=== PATIENT | female | born 1990 | race Caucasian/White ===

== ENCOUNTER 2021-06-16 23:15 | Emergency (ER) | payer BC, SELFPAY ==
--- NOTE | ~2021-06-16 | CT_ITS ---
EXAMINATION: CTA brain carotid EXAM DATE: 06/17/2021 06:01 INDICATION: Headache. TECHNIQUE: Noncontrast head CT. Spiral CTA of the carotid arteries was performed with intravenous i njection 100 cc of Omnipaque 350. Axial, coronal, sagittal reformatted images reviewed. Additional r eformatted images created on dedicated 3-D workstation. NASCET comparable standard used to assess th e degree of arterial stenosis. Spiral CT angiogram cerebral arteries performed with the same intrave nous injection of contrast. Source images of the brain CTA transferred to dedicated workstation for 3 -D rotational image creation. Coronal, sagittal maximum intensity pixel images also reviewed. The d ose-length product (DLP) for this examination was 1685.52 mGy-cm. The exposure was tailored accordi ng to patient size, and iterative reconstruction (ASIR) was used as additional dose reduction techniq ue. There is no prior study for comparison. FINDINGS: There are scattered regions of nonspecific narrowing of cerebral arteries, could indicate n onspecific vasculitis rather than atherosclerosis given patient's young age. Numerous possible underl evelia etiologies for vasculitis including primary angiitis, lupus or other systemic immunological diso rder, drug induced. There is no carotid bulb or siphon stenosis or arterial sclerosis. There is no carotid or vertebral basilar arterial dissection or fibromuscular dysplasia. There are no cerebral artery aneurysms. There is symmetric cerebral artery arborization. The sagittal, transverse and sigmoid sinuses enhance norm ally, no venous sinus thrombosis. Internal cerebral veins also enhance normally. There is no acute intraparenchymal hemorrhage. No evidence of intraparenchymal brain mass lesion. N o evidence of acute infarction. There is no mass effect or midline shift. There is no obstructive hy drocephalus suspected. There are no extra-axial collections. Incidental Findings: There is 1 cm right thyroid lobe nodule. IMPRESSION: 1. Scattered regions of cerebral artery narrowing which could indicate a nonspecific vasculitis. 2. Right there are lobe nodule; consider ultrasound for risk stratification. 3. Bilateral carotid bulb 0% stenosis. I discussed these findings with emergency room at 06/17/2021 08:57 CDT. Reviewed, dictated and finalized at location A. IMPRESSION: 1. Scattered regions of cerebral artery narrowing which could indicate a nonsp ecific vasculitis. 2. Right there are lobe nodule; consider ultrasound for risk stratification. 3. Bilateral carotid bulb 0% stenosis. I discussed these findings with emergency room at 06/17/2021 08:57 CDT.
[2021-06-16 23:18] VITALS: BP 171/95; PULSE 102; RESP 20; TEMP 36.6; O2SAT 98
[2021-06-17 03:13] VITALS: BP 139/100; PULSE 97; RESP 16; O2SAT 100
[2021-06-17] MEDS: METOCLOPRAMIDE HCL INJ 10 MG/2 ML VIAL IV PUSH (03:24)
[2021-06-17] MEDS: diphenhydrAMINE HCl INJ 50 MG/ML VIAL 25 MG IV PUSH (03:25)
[2021-06-17 04:03] VITALS: BP 135/86; PULSE 82; RESP 16; O2SAT 99
--- NOTE | 2021-06-17 04:50 | ED.HA ---
HPI - Headache General Chief Complaint: Headache Stated Complaint: Migraines Time Seen by Provider: 06/17/21 01:55 History of Present Illness HPI Narrative: Patient is a 30-year-old female who presents ER with headache. She has history of migraines. She reports 2 days ago she was driving when she feels like she felt a pop in the back of her head. She is then developed some nausea. No loss of consciousness point of view fevers chills or sweats. She has been taking Tylenol without relief. She did however take some Excedrin prior to arrival tonight which alleviated her headache completely before it returned. She has no numbness or tingling reports she is intermittently dizzy. She is concerned she may have intracranial hemorrhage. Patient reports pain is posterior and radiates to the sides. Throbbing in nature. Related Data Home Medications Medication Instructions Recorded Confirmed buspirone mg 06/16/21 norgestrel-ethinyl estradiol tablet 06/16/21 [Low-Ogestrel (28)] pantoprazole PO 06/16/21 venlafaxine mg PO 06/16/21 venlafaxine mg PO 06/16/21 Allergies Allergy/AdvReac Type Severity Reaction Status Date / Time ibuprofen Allergy Swelling Verified 06/17/21 03:18 Review of Systems Review of Systems: All systems reviewed & are unremarkable except as noted in HPI and below Constitutional: Constitutional: Denies chills, Denies fever(s) and Denies weakness Eyes: Eyes: Denies change in vision and Denies photophobia ENT: Denies nasal congestion and Denies sore throat Gastrointestinal: Gastrointestinal: Reports nausea and Denies vomiting Neurologic: Reports dizziness, Denies syncope, Reports headache(s), Denies focal weakness and Denies numbness PMFSH Past Medical History Medical History (Updated 06/17/21 @ 06:51 by Yimi Barber MD) Migraine headache Surgical History Surgical History (Updated 06/17/21 @ 04:55 by Yimi Barber MD) No pertinent past surgical history Social History Social History (Updated 06/17/21 @ 04:56 by Yimi Barber MD) Smoking status: Never smoker Exam Narrative: GENERAL: Well-appearing, well-nourished, and in no acute distress. HEAD: Normocephalic, atraumatic. EYES: PERRL and EOMI. ENT: Mucous membranes moist. CHEST: Clear to auscultation. No respiratory distress. HEART: Regular rate and rhythm. Normal peripheral pulses. EXTREMITIES: Normal range of motion. No edema. SKIN: Warm, dry, no rash. NEURO: No focal deficits. Alert and oriented x3. PSYCH: Normal mood and affect. Course Course Emergency Course: Patient informed of results. Discharge home. Headache resolved with Tylenol/Reglan/Benadryl. Vital Signs Vital signs: Vital Signs Temperature 97.8 F 06/16/21 23:18 Pulse Rate 102 H 06/16/21 23:18 Respiratory Rate 20 06/16/21 23:18 Blood Pressure 171/95 H 06/16/21 23:18 Pulse Oximetry 98 06/16/21 23:18 Temperature 97.8 F 06/16/21 23:18 Pulse Rate 83 06/17/21 06:25 Respiratory Rate 18 06/17/21 06:25 Blood Pressure 120/68 06/17/21 06:25 Pulse Oximetry 99 06/17/21 06:25 MDM - Headache Lab Data Result diagrams: 06/17/21 05:06 Labs: Lab Results 06/17/21 Range/Units 05:06 Creatinine 0.60 L (0.7-1.0) mg/dL Estim Creat Clear Calc 132 ml/min Estimated GFR > 60 (59 - ) UCG Bedside Result Negative Reference Range: Negative Imaging Data Radiologist's impression: CTA head: There is no hemodynamically significant stenosis within the intracranial vessels. CTA neck there is no hemodynamically significant stenosis within the neck vessels. There is a dominant left vertebral artery. Incidental finding of pleural thickening at the lung apices which may reflect atelectasis/fibrotic changes. 1 cm hypodensity in the right lobe of the thyroid gland recommend ultrasound. Periodontal disease. Degenerative changes to the c
[2021-06-17 05:05] VITALS: BP 109/64; PULSE 77; RESP 16; O2SAT 100
[2021-06-17 05:24] LABS: Estimated CRCL calculation 132 ml/min; Estimated Glomerular Filt Rate > 60
[2021-06-17 06:25] VITALS: BP 120/68; PULSE 83; RESP 18; O2SAT 99
[2021-06-17 07:19] VITALS: BP 129/70; PULSE 80; RESP 12; O2SAT 99
[2021-06-17 14:27] LABS: Alanine Aminotransferase 35 U/L (4-35); Albumin Level 4.6 g/dL (3.5-5.1); Alkaline Phosphatase 142 U/L (38-126); Anion Gap 12 mmol/L (8-16); Aspartate Amino Transferase 32 U/L (14-36); Bilirubin,Total 0.4 mg/dL (0.2-1.3); Blood Urea Nitrogen 11 mg/dL (7-17); Calcium 9.2 mg/dL (8.4-10.2); Carbon Dioxide 23 mmol/L (22-30); Chloride 105 mmol/L (98-107); Estimated CRCL calculation 115 ml/min; Estimated Glomerular Filt Rate > 60; Glucose 148 mg/dL (65-110); Potassium 3.8 mmol/L (3.4-5.0); Sodium 140 mmol/L (137-145)
== END 2021-06-17 07:19 | disposition home or self-care (01) ==
PROVIDERS: Emergency Medicine; Emergency Provider Emergency Medicine; PCP Family Medicine
DX: R51.9 Headache, unspecified (principal); E04.1 Nontoxic single thyroid nodule; R94.02 Abnormal brain scan; Z86.69 Personal history of other diseases of the nervous system and sense organs
CPT/HCPCS: 36415; 70496; 70498; 80053; 81025; 82565; 96365; 96375; 99284; J0131; J1200; J2765; Q9967

== ENCOUNTER 2021-06-17 12:12 | Observation (INO) | payer BC, SELFPAY ==
--- NOTE | ~2021-06-17 | XR_ITS ---
XR chest 2V DATE: 06/18/2021 13:10 INDICATION: Vasculitis TECHNIQUE: PA and lateral views COMPARISON: None FINDINGS: Normal heart size. No hilar or mediastinal enlargement. No pulmonary infiltrate or consolid ation, pleural effusion or pulmonary vascular congestion or pneumothorax. IMPRESSION: No active cardiopulmonary disease Reviewed, dictated and finalized at location B.
--- NOTE | ~2021-06-17 | US_ITS ---
EXAMINATION: US thyroid DATE: 06/18/2021 09:02 INDICATION: Thyroid nodule on CT TECHNIQUE: Multiple ultrasound images of the thyroid were obtained. COMPARISON: CT dated 06/17/2021 FINDINGS: The right thyroid lobe measures 3.8 x 1.6 x 1.5 cm. The left thyroid lobe measures 3.0 x 1.3 x 1.1 c m. 1.6 cm solid very hypoechoic mass with smooth margins and without echogenic foci in the mid right thyroid (TI-RADS 4, moderately suspicious , FNA if >=1.5 cm, annual followup is >=1 cm). No other no dules identified. There is normal echotexture, echogenicity and vascular flow throughout the thyroid gland. IMPRESSION: 1. 1.6 cm TI-RADS 4 right thyroid nodule for which ultrasound-guided biopsy would be recommended. Reviewed, dictated and finalized at location A. IMPRESSION: 1. 1.6 cm TI-RADS 4 right thyroid nodule for which ultrasound-guided biopsy wou ld be recommended.
--- NOTE | ~2021-06-17 | MR_ITS ---
EXAMINATION: MR brain/brain stem wo/w con EXAM DATE: 06/18/2021 08:49 INDICATION: Headache. Severe migraine on Thursday and Thursday with nausea and light sensitivity. Abnor mal CTA brain exam. TECHNIQUE: Magnetic resonance imaging (MRI) of the brain/brain stem obtained without contrast. Sagit azar T1, axial diffusion, gradient echo (T2*), T1, T2, FLAIR sequences obtained. Patient was then inj ected with 20 cc intravenous Multihance contrast. Axial and coronal postcontrast T1 weighted sequence s obtained. Correlation is made to CTA brain examination from yesterday. FINDINGS: There are no areas of restricted diffusion to suggest acute infarction. There is no acute hemorrhage seen on the T2*, a hemosiderin sensitive sequence. No intraparenchymal brain mass. The ve ntricles are normal in size. There are no extra-axial collections. Flow voids are seen in the cereb ral arteries on the T2-weighted sequences consistent with their expected patency. The orbits are unr emarkable. Soft tissue is unremarkable. There are no areas of abnormal enhancement on the postcont rast images. IMPRESSION: 1. Normal brain MRI examination. Reviewed, dictated and finalized at location A.
[2021-06-17 12:50] LABS: Basophils Absolute Auto 0.1 K/mm3 (0.0-0.1); Basophils Percent Auto 0.6 % (0.2-1.2); Eosinophils Absolute Auto 0.1 K/mm3 (0-0.3); Eosinophils Percent Auto 1.2 % (0-4.4); Hematocrit 44.3 % (37.0-47.0); Hemoglobin 14.1 g/dL (12.0-15.0); Immature Granulocyte Absolute 0.03 K/mm3 (0.00-0.031); Immature Granulocyte Percent A 0.3 % (0-0.5); Lymphocytes Absolute Auto 3.29 K/mm3 (0.9-3.2); Mean Corpuscular HGB Conc 31.8 g/dl (32-36); Mean Corpuscular Hemoglobin 26.3 pg (26-34); Mean Corpuscular Volume 82.5 fl (80-100); Mean Platelet Volume 9.1 fl (7.4-10.4); Monocytes Absolute Auto 0.6 K/mm3 (0.1-0.6); Neutrophils Absolute Auto 5.6 K/mm3 (1.3-6.7); Neutrophils Percent Auto 57.9 % (45.5-73.1); Platelet Count Result 268 k/mm3 (150-375); Red Blood Count 5.37 M/mm3 (4.2-5.4); Red Cell Distribution Width 14.1 % (11.5-14.5); White Blood Count 9.7 K/mm3 (4.5-10.0)
[2021-06-17 12:57] VITALS: BP 135/89; PULSE 114; RESP 18; TEMP 36.6; O2SAT 97
[2021-06-17 13:03] LABS: Alanine Aminotransferase 36 U/L (4-35); Albumin Level 4.5 g/dL (3.5-5.1); Alkaline Phosphatase 138 U/L (38-126); Anion Gap 11 mmol/L (8-16); Aspartate Amino Transferase 31 U/L (14-36); Bilirubin,Total 0.5 mg/dL (0.2-1.3); Blood Urea Nitrogen 11 mg/dL (7-17); Calcium 9.2 mg/dL (8.4-10.2); Carbon Dioxide 24 mmol/L (22-30); Chloride 105 mmol/L (98-107); Estimated CRCL calculation 132 ml/min; Estimated Glomerular Filt Rate > 60; Glucose 147 mg/dL (65-110); Potassium 3.9 mmol/L (3.4-5.0); Sodium 140 mmol/L (137-145)
[2021-06-17 13:05] LABS: CRP 1.8 mg/dL (<1.0)
[2021-06-17 13:20] VITALS: BP 137/94; PULSE 107; RESP 18; O2SAT 100
[2021-06-17 13:43] LABS: Erythrocyte Sedimentation Rate 9 mm/hr (0-20)
--- NOTE | 2021-06-17 15:04 | ED.GENADULT ---
HPI - General Adult General Chief complaint: Recheck/Abnormal Lab/Rx Stated complaint: CT Yesterday, Called to Admit today Time Seen by Provider: 06/17/21 14:47 Source: patient History of Present Illness HPI narrative: Patient is a 30 y/o female complaining of bilateral occipital headache starting 2 days ago. She describes her pain as aching and rates it as 3/10 currently. Her pain was worse earlier this morning. She had one episode of vomiting 2 days ago, but no vomiting today. She has no focal weakness or numbness. She was seen here earlier today and had a CTA, which was read as negative initially, but was thought to represent possible vasculitis per Dr. Mendoza. Neurology was consulted and patient was called back for admission and neurology evaluation. Related Data Home Medications Medication Instructions Recorded Confirmed buspirone mg 06/16/21 norgestrel-ethinyl estradiol tablet 06/16/21 [Low-Ogestrel (28)] pantoprazole PO 06/16/21 venlafaxine mg PO 06/16/21 venlafaxine mg PO 06/16/21 Allergies Allergy/AdvReac Type Severity Reaction Status Date / Time ibuprofen Allergy Swelling Verified 06/17/21 13:22 Review of Systems Constitutional: Constitutional: Denies chills, Denies fever(s), Reports headache(s) and Denies weakness Eyes: Eyes: Denies blurry vision ENT: Reports headache(s) and Denies neck pain Cardiovascular: Cardiovascular: Denies chest pain and Denies dyspnea Respiratory: Respiratory: Denies cough and Denies dyspnea Gastrointestinal: Gastrointestinal: Denies abdominal pain, Denies diarrhea, Reports nausea and Reports vomiting Genitourinary: Genitourinary: Denies hematuria and Denies dysuria Musculoskeletal: Musculoskeletal: Denies back pain and Denies neck pain Neurologic: Reports headache(s) and Denies weakness PMFSH Past Medical History Medical History Migraine headache Surgical History Surgical History No pertinent past surgical history Social History Social History Smoking status: Never smoker Exam Const: General: no acute distress and well developed Orientation/consciousness: oriented to person, oriented to place, oriented to time and patient oriented x3 HENMT: Head: normocephalic Ears: external ears normal General nose exam: Normal external nose present Eyes: General: appearance normal, both eyes and all related structures Conjunctivae: conjunctivae normal Neck: Neck: normal visual inspection and full ROM Chest: Chest palpation & inspection: normal inspection of the chest and no tenderness Resp: Effort & Inspection: normal respiratory effort Auscultation: clear to auscultation bilaterally Cardio: Rate: tachycardic Rhythm: regular rhythm GI: GI Palp: No abdominal tenderness and Yes Soft to palpation Skin: General skin exam: normal color and turgor normal Neuro: General: oriented to person, oriented to place, oriented to time and patient oriented x3 Cranial nerves: Yes CN's II-XII intact bilaterally Cognition (Neuro): normal cognition Speech: normal speech Motor exam (neuro): 5/5 motor strength present throughout Sensory Exam: normal sensation Coordination: [id number] test normal and [id number] test normal Extrem: General: normal to inspection, full ROM and no pedal edema Psych: Appearance: grossly normal Mental Status: mental status grossly normal Affect: normal affect Course Consultations Consultation #1: Discussed with ELSY Monet, who agrees to admit. Date: 06/17/21 Time: 15:00 Vital Signs Vital signs: Vital Signs Temperature 36.6 C 06/17/21 12:57 Pulse Rate 114 H 06/17/21 12:57 Respiratory Rate 18 06/17/21 12:57 Blood Pressure 135/89 06/17/21 12:57 Pulse Oximetry 97 06/17/21 12:57 Temperature 36.6 C 06/17/21 12:57 Pulse Rate 88 06/17/21 15:54 Respiratory
[2021-06-17 15:54] VITALS: BP 115/78; PULSE 88; RESP 16; O2SAT 100
--- NOTE | 2021-06-17 16:02 | PC.NURSE ---
This patient, Imani Sweeney, was admitted to [facility]. Patient/family oriented to hospital policies and general routines including ID bracelet, bed and alarms, visiting hours, pain management, procedures, bathroom and other care routines, personal items, smoking policy, room service/diet, and visiting hours. Information on how to activate the Rapid Response Team has been discussed. Patient/Family are encouraged to report perceived risks to care and to ask questions if they do not understand what they are told or what they should do.
[2021-06-17] MEDS: SODIUM CHLORIDE 0.9% IV 1,000 ML 999 ML IV CONT (16:18)
[2021-06-17 16:24] VITALS: BMI 40.5
[2021-06-17 16:33] VITALS: BP 169/79; PULSE 90; RESP 18; TEMP 36.6; O2SAT 97
[2021-06-17] MEDS: SODIUM CHLORIDE 0.9% IV 1,000 ML 100 ML IV CONT (17:56)
--- NOTE | 2021-06-17 18:35 | PM.IMHP ---
H&P: HPI History of Present Illness Date/Time: 06/17/21 18:35 this is a 30-year-old female patient who does have a history of having migraines. The patient came in earlier this morning to the emergency room with complaint of a headache. The patient stated that she has had a headache for 2 days and she has been taking Tylenol and the headache has not gone away. The patient stated she was driving 2 days ago and she felt a pop in the back of her neck. She developed some nausea but did not lose consciousness at that time she has not had any fever chills. She stated that Excedrin did help alleviate some of the headache but then it returned. She has not had any numbness or tingling. The patient CT scan was reported as nothing acute and the patient was returned to home. The amended read on the CT scan was as follows. Scattered regions of cerebral artery narrowing which could indicate a nonspecific vasculitis. 2. Right there are lobe nodule; consider ultrasound for risk stratification. 3. Bilateral carotid bulb 0% stenosis. The patient was called in asked to return to the emergency room. The patient was started on IV fluids. She is being admitted to observation status on the date of service of 06/17/2021 Chief Complaint: Migraine Review of Systems Review of Systems: All systems reviewed & are unremarkable except as noted in HPI and below Constitutional: Constitutional: Reports as per HPI and Reports no additional constitutional complaints Eyes: Eyes: Reports as per HPI and Reports no additional eye complaints ENT: Reports system reviewed and no additional complaints, except as documented and Reports Normal hearing present Cardiovascular: Cardiovascular: Reports no additional cardiovascular complaints Respiratory: Respiratory: Reports no additional respiratory complaints and Reports no additional respiratory complaints Gastrointestinal: Gastrointestinal: Reports as per HPI and Reports no additional gastrointestinal complaints Musculoskeletal: Musculoskeletal: Reports no additional musculoskeletal complaints Integumentary/Breasts: Skin/Breast: Reports system reviewed and no additional complaints, except as docu and Reports as per HPI Neurologic: Reports system reviewed and no additional complaints, except as documented, Reports as per HPI and Reports Normal hearing present Psychiatric: Psychiatric: Reports no additional psychiatric complaints and Reports as per HPI Endocrine: Endocrine: Reports no additional endocrine complaints Hematologic/Lymphatic: Hematologic/Lymphatic: Reports no additional hematologic/lymphatic complaints Allergic/Immunologic: Allergic/Immunologic: Reports no additional allergic/immunologic complaints [facility] Past Medical History Medical History (Updated 06/17/21 @ 18:58 by Tierney Mendoza NP) Anxiety Migraine headache Surgical History Surgical History (Updated 06/17/21 @ 18:45 by Tierney Mendoza NP) History of tooth extraction Hx of cholecystectomy S/P tonsillectomy and adenoidectomy Family History Family History Father Diabetes mellitus Anxiety Depression Mother Anxiety Depression Social History Social History (Updated 06/17/21 @ 18:47 by Tierney Mendoza NP) Social History: The patient lives with her father. She works at [employer]. She does occasionally smoke marijuana. Her father is a durable power state's attorney for healthcare. The patient is a full code. The patient has no children. She is single. Smoking status: Current every day smoker Smokeless tobacco user: other Second hand tobacco smoke exposure: No Alcohol intake: current Drinks per week: 1 Substance use: current Substance use type: marijuana Last use: 06/17/21 Spiritual care concerns: No Meds Home Medications and Allergies Home Medications Medication Instructions Recorded Confirmed Type buspirone 15 mg PO BID 06/16/21
[2021-06-17] MEDS: busPIRone HCL 5 MG TABLET 15 MG PO (18:48)
[2021-06-17] MEDS: METOCLOPRAMIDE HCL INJ 10 MG/2 ML VIAL IV PUSH (18:48)
[2021-06-17] MEDS: HYDROcodone/acetaminophen (*CRX) 5-325 MG TABLET 1 TAB PO (18:48)
[2021-06-17] MEDS: PANTOPRAZOLE 40 MG TABLET PO (18:48)
[2021-06-17 20:00] VITALS: O2SAT 96
[2021-06-17 21:47] VITALS: BP 128/83; PULSE 84; RESP 18; TEMP 36.2; O2SAT 96
[2021-06-17] MEDS: methylPREDNISolone SOD SUCC 125 MG VIAL 80 MG IV PUSH (23:56)
[2021-06-18] MEDS: SODIUM CHLORIDE 0.9% IV 1,000 ML 100 ML IV CONT (03:39)
[2021-06-18 06:00] VITALS: BP 146/94; PULSE 88; RESP 18; TEMP 37.1; O2SAT 95
[2021-06-18] MEDS: methylPREDNISolone SOD SUCC 125 MG VIAL 80 MG IV PUSH (06:07)
[2021-06-18 06:10] LABS: Basophils Percent Auto 0.2 % (0.2-1.2); Hematocrit 43.8 % (37.0-47.0); Hemoglobin 13.9 g/dL (12.0-15.0); Immature Granulocyte Absolute 0.04 K/mm3 (0.00-0.031); Immature Granulocyte Percent A 0.5 % (0-0.5); Lymphocytes Absolute Auto 1.18 K/mm3 (0.9-3.2); Lymphocytes Percent Auto 14.3 % (18.3-44.2); Mean Corpuscular HGB Conc 31.7 g/dl (32-36); Mean Corpuscular Hemoglobin 26.6 pg (26-34); Mean Corpuscular Volume 83.7 fl (80-100); Mean Platelet Volume 9.2 fl (7.4-10.4); Monocytes Absolute Auto 0.1 K/mm3 (0.1-0.6); Monocytes Percent Auto 0.6 % (2.6-8.5); Neutrophils Percent Auto 84.4 % (45.5-73.1); Platelet Count Result 272 k/mm3 (150-375); Red Blood Count 5.23 M/mm3 (4.2-5.4); Red Cell Distribution Width 13.9 % (11.5-14.5); White Blood Count 8.3 K/mm3 (4.5-10.0)
[2021-06-18 06:24] LABS: Lactic Acid Reflex 1.6 mmol/L (0.7-2.1)
[2021-06-18 06:28] LABS: Lactate Dehydrogenase 492 U/L (313-618); Magnesium 1.8 mg/dL (1.6-2.3)
[2021-06-18] MEDS: busPIRone HCL 5 MG TABLET 15 MG PO (09:24)
[2021-06-18] MEDS: PANTOPRAZOLE 40 MG TABLET PO (09:24)
[2021-06-18] MEDS: VENLAFAXINE HCL XR 75 MG CAP.ER.24H 150 MG PO (09:24)
[2021-06-18] MEDS: VENLAFAXINE HCL XR 75 MG CAP.ER.24H PO (09:26)
[2021-06-18 10:24] LABS: Complement C3 152 mg/dL (88-165); Erythrocyte Sedimentation Rate 15 mm/hr (0-20); Rheumatoid Factor < 8.6 IU/ML (<12)
--- NOTE | 2021-06-18 10:24 | WPDNEURCNPN ---
Assessment and Plan Additional Plan Young girl with nonfocal neurological examination but questionably abnormal CTA all the basic blood workup has been drawn for the immunological studies Zuleika followed in the office subsequent any blood tests come back abnormal the 3 diagnosis will pursue further Consult date: 06/18/21 Time Seen: 09:30 HPI: Imani Sweeney is a 30 year old [facility]. 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 At this stage patient gives no history of nausea vomiting blood in stool or black stool no history of cough shortness of breath pain in chest or abdomen no history of hematuria or dysuria Review of Systems Review of Systems: All systems reviewed & are unremarkable except as noted in HPI and below PMFSH Past Medical History Medical History Anxiety Migraine headache Surgical History Surgical History History of tooth extraction Hx of cholecystectomy S/P tonsillectomy and adenoidectomy Family History Family History Father Diabetes mellitus Anxiety Depression Mother Anxiety Depression Social History Social History Social History: The patient lives with her father. She works at [employer]. She does occasionally smoke marijuana. Her father is a durable power customer management specialist for healthcare. The patient is a full code. The patient has no children. She is single. Smoking status: Current every day smoker Smokeless tobacco user: other Second hand tobacco smoke exposure: No Alcohol intake: current Drinks per week: 1 Substance use: current Substance use type: marijuana Last use: 06/17/21 Spiritual care concerns: No Meds Home Medications and Allergies Home Medications Medication Instructions Recorded Confirmed Type buspirone 15 mg PO BID 06/16/21 06/17/21 History norgestrel-ethinyl estradiol 1 tablet PO DAILY 06/16/21 06/17/21 History [Low-Ogestrel (28)] pantoprazole 40 mg PO BID 06/16/21 06/17/21 History venlafaxine 75 mg PO DAILY 06/16/21 06/17/21 History venlafaxine 150 mg PO DAILY 06/16/21 06/17/21 History Allergies Allergy/AdvReac Type Severity Reaction Status Date / Time ibuprofen Allergy Swelling Verified 06/17/21 16:23 Vital Signs Vital Signs - 24 hr 06/17/21 12:57 06/17/21 13:20 06/17/21 15:54 Temperature 36.6 C Pulse Rate 114 H 107 H 88 Respiratory Rate 18 18 16 Blood Pressure 135/89 137/94 H 115/78 Pulse Oximetry 97 100 100 06/17/21 16:33 06/17/21 20:00 06/17/21 21:47 Temperature 36.6 C 36.2 C L Pulse Rate 90 84 Respiratory Rate 18 18 Blood Pressure 169/79 H 128/83 Pulse Oximetry 97 96 96 06/18/21 06:00 Temperature 37.1 C Pulse Rate 88 Respiratory Rate 18 Blood Pressure 146/94 H Pulse Oximetry 95 Exam Narrative: examination revealed her to be awake alert cooperative in no obvious acute distress. Head was normocephalic with no cranial bruit. Ear nose throat examination was normal. Neck was supple with no cervical bruits no thyromegaly no lymphadenopathy. Heart was regular with no murmur. Lungs were clear to auscultation. Abdomen is soft protuberant with no organomegaly. Motor neurological examination revealed her to be awake alert [facility]
[2021-06-18 11:39] LABS: Hepatitis B Surface Antigen Negative (Negative)
[2021-06-18 11:45] LABS: HAV RESULT Negative (Negative); Hepatitis B Core IgM Result Negative (Negative)
[2021-06-18 11:56] LABS: Hepatitis C Virus Antibody Negative (Negative)
--- NOTE | 2021-06-18 13:23 | PM.DS ---
DS: Admitting Diagnosis Discharge Date 06/18/21 Admitting Diagnosis Headache, vasculitis DS: Discharge Diagnosis Discharge Diagnosis (1) Vasculitis: Code(s): I77.6 - Arteritis, unspecified Status: Acute (2) Headache: Qualifiers: Headache chronicity pattern: unspecified pattern Headache type: unspecified Intractability: not intractable Qualified Code(s): R51.9 - Headache, unspecified Code(s): R51.9 - Headache, unspecified Status: Acute (3) Thyroid nodule: Code(s): E04.1 - Nontoxic single thyroid nodule Status: Inactive (4) Anxiety: Code(s): F41.9 - Anxiety disorder, unspecified Status: Chronic DS: Summary Hospital Course Hospital Course: Patient is a 30-year-old female who presented emergency room for occipital headache that was different from her other headaches on 06/17/2021. She had no neurological symptoms associated with this and the pain was a 3/10 at the time of admission. Vitals in the ER were temperature 36.6? C, pulse 114, respiratory rate 18, blood pressure 135/89, pulse ox 97. Initial CBC within normal limits. BMP relatively normal with the exception of random glucose 147. CRP 1.8. ESR 15. Patient underwent a CTA which showed scattered regions of cerebral artery narrowing which could indicate nonspecific vasculitis with a thyroid nodule incidentally found. Patient was admitted to the hospitalist service and started on IV steroids. She said her headache improved immediately with the steroids. She had no neurological dysfunction and no history of vasculitis or autoimmune disease. Vasculitis seem to be mild, if a true diagnosis, since her ESR was normal and CRP was minimally elevated. Further testing was pursued and her Rh factor was negative, C3 and C4 normal, and hepatitis and HIV screen negative. Her ANCA and GAETANO are still pending. Chest x-ray was normal and she had no pulmonary symptoms. On exam she had no neurological deficits and her headache had improved. She did undergo thyroid ultrasound due to the CT findings which showed a 1.6 cm TI-RADS 4 right thyroid nodule and FNA was recommended. Patient plans to obtain this biopsy outpatient and is going to follow up with her primary care physician. I did speak to her about the diagnosis of possible vasculitis and we decided to start 81 mg of aspirin. Neurology saw the patient and was okay with discharge on a Medrol Dosepak. I called her primary care physician to let him know about the pending labs, diagnosis and further evaluation of her thyroid nodule. He agreed to follow. All-in-all, the patient was feeling better and ready to go. She was educated about the worrisome signs and symptoms come back to emergency room for and was discharged in stable condition. Status at Discharge Functional status at discharge: independent ambulation Time Spent with Patient Time attestation: Total time spent providing and/or coordinating discharge services: Time spent: Greater than 30 minutes Exam Narrative: General: Well developed well nourished patient in NAD HEENT: normocephalic Neck: supple Neuro: Alert and oriented x4. Cranial nerves 2-12 intact. Equal strength the upper lower extremities 5/5. Able to do [id number] and rapid alternating movements. Speech clear. CV:RRR Resp:CTA Abd: Soft, non distended. No pain to palpation. Positive bowel sounds Extremities: No swelling, erythema, or pain to palpation. Skin: No rashes or wounds DS: Data Data Completed and Pending Labs on day of discharge: Labs from last 24 hours 06/18/21 06/18/21 06/18/21 09:46 09:46 09:46 WBC RBC Hgb Hct MCV MCH MCHC RDW Plt Count MPV Immature Gran % (Auto) Neut % (Auto) Lymph % (Auto) Howard % (Auto) Eos % (Auto) Baso % (Auto) Lymph # (Auto) Howard # (Auto) Eos # (Auto) Baso # (Auto) Abs Immat Gran (auto) Absolute Neuts (auto) Absolute Nucl
[2021-06-18 20:12] LABS: HIV 1/2 Ab P24 Ag Result Negative (Negative)
[2021-06-20 10:46] LABS: ANCA Screen Negative (Negative)
--- NOTE | 2021-06-25 11:12 | PC.NURSE ---
HIV negarive, GAETANO and ANCA are negative. These labs plus CXR and Thyroid US faxed to Dr. Colon at [phone].
== END 2021-06-18 14:21 | disposition home or self-care (01) ==
LOC: ANHED 14:47 → ANHCPC 16:00
PROVIDERS: Nurse Practitioner; Physician Assistant; Admitting Provider Family Medicine; Emergency Provider Emergency Medicine; PCP Family Medicine; Visit Provider Family Medicine
DX: I77.6 Arteritis, unspecified (principal); R51.9 Headache, unspecified; E04.1 Nontoxic single thyroid nodule; F41.9 Anxiety disorder, unspecified
CPT/HCPCS: 36415; 70553; 71046; 76536; 80053; 80074; 83605; 83615; 83735; 84443; 85025; 85652; 86021; 86038; 86140; 86160; 86430; 86703; 87040; 96361; 96374; 96375; 96376; 99285; A9270; A9577; G0378; G0432; J2765; J2930; J7030

== ENCOUNTER 2021-07-10 07:17 | Outpatient (CLI) | payer BC, SELFPAY ==
[2021-07-10 07:53] LABS: Hematocrit 43.1 % (37.0-47.0); Hemoglobin 13.6 g/dL (12.0-15.0); Mean Corpuscular HGB Conc 31.6 g/dl (32-36); Mean Corpuscular Hemoglobin 26.7 pg (26-34); Mean Corpuscular Volume 84.5 fl (80-100); Mean Platelet Volume 8.9 fl (7.4-10.4); Platelet Count Result 273 k/mm3 (150-375); Red Cell Distribution Width 14.6 % (11.5-14.5)
[2021-07-10 08:12] LABS: Alanine Aminotransferase 34 U/L (4-35); Albumin Level 4.2 g/dL (3.5-5.1); Alkaline Phosphatase 125 U/L (38-126); Anion Gap 12 mmol/L (8-16); Aspartate Amino Transferase 47 U/L (14-36); Bilirubin,Total 0.3 mg/dL (0.2-1.3); Blood Urea Nitrogen 12 mg/dL (7-17); CRP 2.6 mg/dL (<1.0); Calcium 9.2 mg/dL (8.4-10.2); Carbon Dioxide 24 mmol/L (22-30); Chloride 105 mmol/L (98-107); Estimated Glomerular Filt Rate > 60; Glucose 145 mg/dL (65-110); Potassium 4.4 mmol/L (3.4-5.0); Sodium 141 mmol/L (137-145)
[2021-07-10 09:28] LABS: Rheumatoid Factor < 8.6 IU/ML (<12)
== END 2021-07-10 07:18 | disposition home or self-care (01) ==
PROVIDERS: PCP Family Medicine; Visit Provider Psychiatry & Neurology Neurology
DX: R51.9 Headache, unspecified (principal); D84.9 Immunodeficiency, unspecified
CPT/HCPCS: 36415; 80053; 85027; 86038; 86140; 86430

== ENCOUNTER 2022-01-07 12:21 | Outpatient (CLI) | payer BC, SELFPAY ==
--- NOTE | ~2022-01-07 | US_ITS ---
EXAMINATION: US pelvic complete w TV EXAM DATE: 01/07/2022 13:45 INDICATION: Pelvic and perineal pain. TECHNIQUE: Pelvic transabdominal and transvaginal sonogram was performed. There are multiple graysca le and Doppler images available for interpretation. There is no prior study for comparison. FINDINGS: Uterus measures 6.1 x 3.6 x 2.6 cm, and is morphologically normal. Lower uterine segment h as focal hypoechoic endometrium or intraluminal polypoid mass, region measuring 1.3 cm in thickness b y about 3 cm in length. Small amount of fluid in the endometrial canal at the fundus. There is no tamela e pelvic fluid. Right adnexa: The ovary measures 3.5 x 3.5 x 2.8 cm with multiple peripheral follicles. Ovarian vascu lar flow confirmed. Left adnexa: The ovary measures 3.8 x 3.1 x 2.7 cm with multiple peripheral follicles. Ovarian vascul ar flow confirmed. IMPRESSION: 1. Lower uterine segment endometrium within normal thickness but focal hypoechoic appearance could i ndicate endometrial polyp, polypoid mass, hyperplasia. Consider 6 week follow-up exam. 2. Polycystic ovaries. Reviewed, dictated and finalized at location A. IMPRESSION: 1. Lower uterine segment endometrium within normal thickness but focal hypoech oic appearance could indicate endometrial polyp, polypoid mass, hyperplasia. Co nsider 6 week follow-up exam. 2. Polycystic ovaries.
== END 2022-01-07 12:22 | disposition home or self-care (01) ==
PROVIDERS: PCP Family Medicine
DX: R10.2 Pelvic and perineal pain (principal); E28.2 Polycystic ovarian syndrome
CPT/HCPCS: 76830; 76856

== ENCOUNTER 2022-02-18 10:25 | Outpatient (CLI) | payer BC, SELFPAY ==
--- NOTE | ~2022-02-18 | US_ITS ---
EXAMINATION: US pelvic complete w TV DATE: 02/18/2022 11:23 INDICATION: Pelvic and perineal pain. History of polycystic ovarian syndrome. Comparison:Ultrasound dated 01/07/2022 TECHNIQUE: Multiple transabdominal and endovaginal sonographic images of the pelvis performed. FINDINGS: The uterus measures 4.6 x 3 x 1.9 cm. The endometrial complex measures 3 mm. There is a sma ll amount of fluid in the endometrium. The right ovary measures 3.6 x 3.5 x 2.8 cm and the left ovary measures 2.9 x 3.3 x 2.7 cm. There ar e small follicles in each ovary. Normal doppler signal in both ovaries. There is no free fluid in the pelvis. There are no abnormal masses seen on either side. IMPRESSION: 1. Small amount of fluid in the lower endometrium/cervix. 2: Follicular changes in both ovaries. Reviewed, dictated and finalized at location A.
== END 2022-02-18 10:26 | disposition home or self-care (01) ==
PROVIDERS: PCP Family Medicine
DX: R10.2 Pelvic and perineal pain (principal)
CPT/HCPCS: 76830; 76856

== ENCOUNTER 2022-06-01 18:00 | Emergency (ER) | payer BC, SELFPAY ==
[2022-06-01 18:02] VITALS: BP 147/83; PULSE 115; RESP 18; TEMP 36.8; O2SAT 99
--- NOTE | 2022-06-01 19:44 | PC.NURSE ---
Pt left at 1941
--- NOTE | 2022-06-01 20:16 | PC.NURSE ---
Pt not in wr when called for room assignment.
== END 2022-06-01 20:16 | disposition left against medical advice (07) ==
LOC: ANHED 19:54
PROVIDERS: PCP Family Medicine
DX: Z53.21 Procedure and treatment not carried out due to patient leaving prior to being seen by health care provider (principal)
CPT/HCPCS: 99199